=== PATIENT | male | born 1980 | race Two or more races ===

== ENCOUNTER → 2024-07-21 10:40 | Outpatient (CLI) | payer OTHER ==
[2024-07-21 11:46] LABS: BASO % 0.2 % (0.1-1.2); EOS % 1.9 % (0.7-7.0); HEMATOCRIT 44.7 % (40.1-51.0); HEMOGLOBIN 15.3 g/dL (13.7-17.5); LYMPH # 1.84 (1.18-3.74); LYMPH % 34.3 % (19.3-53.1); MEAN CORPUSCULAR HEMOGLOBIN 29.9 pg (25.6-32.2); MONO # 0.36 (0.24-0.82); MONO % 6.7 % (4.7-12.5); NEUT # 3.05 (1.56-6.13); NEUT % 56.7 % (34.0-71.1); PLATELET COUNT 220 K/uL (163-369); RED BLOOD COUNT 5.11 M/uL (4.63-6.08)
[2024-07-21 12:17] LABS: CHOL HDL RATIO 2.4 (0-5.0); FERRITIN 88.8 NG/ML (26-388); T4 FREE 0.96 NG/ML (0.76-1.46); TSH 1.18 uIU/mL (0.358-3.74)
[2024-07-21 12:32] LABS: VITAMIN D3 25 HYDROXY 36.61 ng/ml (30-120)
== END | disposition home or self-care (01) ==
LOC: LAB 10:40
PROVIDERS: ATTEND General Practice
DX: E29.1 Testicular hypofunction (principal); E61.1 Iron deficiency; D64.9 Anemia, unspecified; E78.00 Pure hypercholesterolemia, unspecified; E55.9 Vitamin D deficiency, unspecified; D51.9 Vitamin B12 deficiency anemia, unspecified; E03.9 Hypothyroidism, unspecified